=== PATIENT | female | born 1965 | race African-American/Black ===

== ENCOUNTER 2025-06-13 19:23 | Emergency (ER) | payer MEDICAID ==
[~2025-06-13] VITALS: Ht 162.6 cm; Wt 78.6 kg
[2025-06-13 19:37] VITALS: TEMP 98.6
[2025-06-13] MEDS ORDERED: HYDR25TA2 PO (19:40)
[2025-06-13] MEDS ORDERED: LOSA-381 PO (19:40)
[2025-06-13] MEDS ORDERED: METF-1211 PO (19:40)
[2025-06-13] MEDS ORDERED: LEVO75 PO (19:40)
[2025-06-13 19:55] LABS: GLUCOMETER DEV NAME(LOC) ER.7; GLUCOSE,POINT OF CARE 67 MG/DL (70-110)
[2025-06-13] MEDS: HYDROCODONE/ACETAMINOPHEN 5-325 MG TABLET PO ONE (20:35)
[2025-06-13] MEDS ORDERED: METH-659 PO (21:16)
[2025-06-13] MEDS ORDERED: IBUP-1554 PO (21:16)
[2025-06-13] MEDS ORDERED: HYDR-4062 PO (21:16)
[2025-06-13 21:47] VITALS: BP 135/75; PULSE 74; RESP 18; O2SAT 99
== END 2025-06-13 21:50 | disposition home or self-care (01) ==
LOC: EMS 19:23
DX: S39.012A Strain of muscle, fascia and tendon of lower back, initial encounter (principal); S40.012A Contusion of left shoulder, initial encounter; E11.9 Type 2 diabetes mellitus without complications; F41.9 Anxiety disorder, unspecified; I10 Essential (primary) hypertension; Z79.899 Other long term (current) drug therapy; V89.2XXA Person injured in unspecified motor-vehicle accident, traffic, initial encounter; Y93.89 Activity, other specified; Y92.410 Unspecified street and highway as the place of occurrence of the external cause; Y99.8 Other external cause status
CPT/HCPCS: 72040; 72070; 72100; 82962; 99284